=== PATIENT | female | born 1940 | race Caucasian/White ===

== ENCOUNTER 2020-11-23 02:11 | Emergency (ER) | payer MEDICARE ==
[2020-11-23] MEDS ORDERED: Proparacaine 0.5% Ophth Soln 15 ML Bottle EYEBOTH STA (02:23)
[2020-11-23] MEDS ORDERED: Tetracaine HCl/PF 0.5% 4 ML Bottle ONE (02:38)
[2020-11-23] MEDS ORDERED: Tetracaine HCl/PF 0.5% 4 ML Bottle EYEBOTH ONE (02:41)
--- NOTE | 2020-11-23 03:29 | EDM.PDOC ---
ED HPI GENERAL MEDICAL PROBLEM - General Chief Complaint: ENT Problem Stated Complaint: GLAUCOMA, COVID POSITIVE Time Seen by Provider: 11/23/20 02:31 - History of Present Illness INITIAL COMMENTS - FREE TEXT/NARRATIVE: History of present illness: [] This patient was diagnosed Covid +18 November. 21 November she began to have trouble with her vision and pain in the right eye. It cleared up somewhat during the day 22 November but at the evening 22 November late evening she went to the local hospital with complaints of eye pain. She had a steamy cornea dilated pupil and injection of the conjunctiva. 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 They did not have a way to measure the pressure in the eye so they sent her to me by ambulance. When she got here she still complaining the same visual problem and discomfort in the right eye. Review of systems: As per history of present illness and below otherwise all systems reviewed and negative. Past medical history: As per history of present illness and as reviewed below otherwise noncontributory. Surgical history: As per history of present illness and as reviewed below otherwise noncontributory. Social history: No reported history of drug or alcohol abuse. Family history: As per history of present illness and as reviewed below otherwise noncontributory. Physical exam: Constitutional - well developed, well-nourished and in no acute distress HEENT - normocephalic, no evidence of trauma - external nose and mouth normal - no mass in neck and no JVD - mucosae moist EYES -fuzzy vision with the right only see shadows. Dilated pupil on the right. Steamy cornea on the right. Pressure by Prashant-Pen is 44. Left has better vision and the pupil reacts. Pressure on the left 9 Respiratory - no respiratory distress, equal bilateral expansion Musculoskeletal no gross deformity of long bones or joints - no tenderness, swelling or edema Neurologic - Alert and oriented times four - CN II-XII grossly intact - motor sensory and coordination symmetrically normal Psychiatric - appropriate mood and affect with normal thought content Hematologic - No petechiae or purpura - mucosa appropriate color and sclera not pale - normal nail bed color and refill Integument - no rash or evidence of trauma - normal turgor Diagnostics: [] Therapeutics: [] Impression: [] Plan: [] Definitive disposition and diagnosis as appropriate pending reevaluation and review of above. Right Eye Pain Score (Numeric/FACES): 5 - Related Data Allergies Allergy/AdvReac Type Severity Reaction Status Date / Time No Known Allergies Allergy Verified 11/23/20 03:27 Home Meds: Home Meds Calcium Carb, Citrate/Vit D3 [Citracal + D ER] 400 mg PO ASDIRECTED 11/23/20 [History] Celecoxib 100 mg PO DAILY 11/23/20 [History] Gabapentin [Neurontin] 100 mg PO BEDTIME 11/23/20 [History] Latanoprost/Pf [Latanoprost 0.005% Eye Drop] 2.5 ml EYEBOTH ASDIRECTED 11/23/20 [History] Levothyroxine [Synthroid] 88 mcg PO ASDIRECTED 11/23/20 [History] Levothyroxine [Synthroid] 100 mcg PO ASDIRECTED 11/23/20 [History] Losartan Potassium 100 mg PO DAILY 11/23/20 [History] Omeprazole 20 mg PO DAILY 11/23/20 [History] Ondansetron [Ondansetron Odt] 4 mg PO Q8HR 11/23/20 [History] Simvastatin 20 mg PO BEDTIME 11/23/20 [History] hydroCHLOROthiazide [Hydrochlorothiazide] 25 mg PO DAILY 11/23/20 [History] Past Medical History HEENT History: Reports: Glaucoma Cardiovascular History: Reports: Hypertension Respiratory History: Reports: Other (See Below) Other Respiratory History: COVID - Infectious Disease History Infectious Disease History: Reports: Chicken Pox, Measles - Past Surgical History HEENT Surgical History: Reports: None Respiratory Surgical History: Reports: None Social & Family History - Tobacco Use Tobacco Use Status *Q: Never Tobacco User Second Hand Smoke Exposure: No - Caffeine Use Caffeine Use: Reports: None - Recreational Drug Use Recreational Drug Use: No ED ROS GENERAL - Review of Systems Review Of Systems: Comprehensive ROS is negative, except as noted in HPI. ED EXAM, GENERAL - Physical Exam Exam: See Below Free Text/Narrative:: My physical exam is in the HPI Course - Vital Signs Text/Narrative:: Discussed with Dr. Combs. At 3:15 AM he decided he would rather do the procedure in the office. We discussed with the ambulance they said they can have her to the office by 4 AM. 5:15 AM the patient has returned. She was seen by Dr. Combs. He did canthotomy is on both iris. He wants to see her back next week. He gave her drops of 2 types and detailed instructions. Will call the daughter and have her come from this point and fiber picker her mother. Last Recorded V/S: Last Vital Signs Temp 36.1 C 11/23/20 08:50 Pulse 91 11/23/20 08:50 Resp 20 11/23/20 08:50 BP 116/74 11/23/20 08:50 Pulse Ox 91 L 11/23/20 08:50 - Orders/Labs/Meds Meds: Medications Discontinued Medications Generic Name Dose Route Start Last Admin Trade Name Freq PRN Reason Stop Dose Admin Sodium Chloride 1,000 mls @ 100 mls/hr 11/23/20 05:30 Normal Saline IV ASDIRECTED ADAMA Proparacaine HCl 1 ml 11/23/20 02:23 11/23/20 03:18 Proparacaine 0.5% Ophth Soln 15 Ml Bottle EYEBOTH 11/23/20 02:24 Not Given STAT STA Sodium Chloride 10 ml 11/23/20 05:29 Sodium Chloride 0.9% 10 Ml Syringe FLUSH ASDIRECTED PRN Keep Vein Open Sodium Chloride 2.5 ml 11/23/20 05:29 Sodium Chloride 0.9% 2.5 Ml Syringe FLUSH ASDIRECTED PRN Keep Vein Open Tetracaine HCl Confirm 11/23/20 02:38 11/23/20 03:18 Tetracaine Hcl/Pf 0.5% 4 Ml Bottle Administered 11/23/20 02:39 Not Given Dose 4 ml .ROUTE .STK-MED ONE Tetracaine HCl 5 ml 11/23/20 02:41 11/23/20 03:19 Tetracaine Hcl/Pf 0.5% 4 Ml Bottle EYEBOTH 11/23/20 02:42 1 drop ASDIRECTED ONE Administration Departure - Departure Time of Disposition: 08:50 Disposition: Home, Self-Care 01 Clinical Impression: Acute angle-closure glaucoma, COVID-19 - Discharge Information Instructions: Glaucoma, [id number] Referrals: PCP,None [Primary Care Provider] - Dyllan Avalos MD [Ordering Only Provider] - Forms: ED Department Discharge Additional Instructions: The game author gave the detailed instructions and 2 bottles of drops. Use them the way he told you. His office will call you on the first week day and arrange for follow-up this week coming [facility] [address] [place] [address] [facility] [address] [place] [address] The following information is given to patients seen in the emergency department who are being discharged to home. This information is to outline your options for follow-up care. We provide all patients seen in our emergency department with a follow-up referral. The need for follow-up, as well as the timing and circumstances, are variable depending upon the specifics of your emergency department visit. If you don't have a primary care physician on staff, we will provide you with a referral. We always advise you to contact your personal physician following an emergency department visit to inform them of the circumstance of the visit and for follow-up with them and/or the need for any referrals to a consulting specialist. The emergency department will also refer you to a specialist when appropriate. This referral assures that you have the opportunity for follow-up care with a specialist. All of these measure are taken in an effort to provide you with optimal care, which includes your follow-up. Under all circumstances we always encourage you to contact your private physician who remains a resource for coordinating your care. When calling for follow-up care, please make the office aware that this follow-up is from your recent emergency room visit. If for any reason you are refused follow-up, please contact the [facility] Emergency Department at and asked to speak to the emergency department charge nurse. Sepsis Event Note (ED) - Focused Exam Vital Signs: Vital Signs Temp Pulse Resp BP Pulse Ox 11/23/20 08:50 36.1 C 91 20 116/74 91 L
[2020-11-23] MEDS ORDERED: Sodium Chloride 0.9% 10 ML Syringe FLUSH PRN (05:29)
[2020-11-23] MEDS ORDERED: Sodium Chloride 0.9% 2.5 ML Syringe FLUSH PRN (05:29)
[2020-11-23] MEDS ORDERED: Sodium Chloride 0.9% 1,000 ML IV SCH (05:30)
== END 2020-11-23 08:50 | disposition home or self-care (01) ==
LOC: MW.ED 02:11
DX: U07.1 COVID-19 (principal); H40.211 Acute angle-closure glaucoma, right eye; I10 Essential (primary) hypertension; Z86.16 Personal history of COVID-19; Z79.899 Other long term (current) drug therapy
CPT/HCPCS: 99284